=== PATIENT | female | born 1970 | race Caucasian/White ===

== ENCOUNTER → 2016-12-06 | Outpatient (CLI) | payer OTHER ==
--- NOTE | 2016-12-06 10:09 | DIAGNOSTIC IMAGING REPORT ---
PORTAL HEPATIC VEIN DUPLEX ULTRASOUND CLINICAL HISTORY: HX OF DVT,ABDNORMAL RUQ US COMPARISON STUDY: No previous studies for comparison. FINDINGS: The hepatic veins were patent with normal directional flow. The portal veins were patent with normal directional flow. There is no evidence of acute splenic vein thrombosis. There is fibrin stranding at the level of the portal splenic confluence. There is fibrin stranding within the portal vein near the portal splenic confluence. IMPRESSION: 1. Fibrin stranding within the portal vein near the portal splenic confluence. This likely represents a sequela of prior thrombus. 2. No evidence of acute thrombus. 3. Normal directional flow within the hepatic and portal veins Electronically signed by: Jamey Fang M.D. 12/06/2016 10:07 AM Dictated Date/Time: 12/06/2016 10:04 AM
== END | disposition home or self-care (01) ==
LOC: C.ULTR 09:21
PROVIDERS: ATTEND Nurse Practitioner Family
DX: R93.8 Abnormal findings on diagnostic imaging of other specified body structures (principal); Z86.718 Personal history of other venous thrombosis and embolism